=== PATIENT | male | born 1975 | race Caucasian/White ===

== ENCOUNTER 2017-04-12 21:29 | Emergency (ER) | payer BC ==
[~2017-04-12] VITALS: Ht 172.7 cm; Wt 80.5 kg
[2017-04-12] MEDS ORDERED: ZITHROMAX500 MG PO (23:45)
[2017-04-12] MEDS ORDERED: FLONASE16 G1 BOTH NARES (23:45)
[2017-04-13 00:08] VITALS: BP 130/84
== END 2017-04-13 00:09 | disposition home or self-care (01) ==
LOC: EME 21:29
DX: J02.9 Acute pharyngitis, unspecified (principal); J18.0 Bronchopneumonia, unspecified organism; J32.9 Chronic sinusitis, unspecified; Z88.0 Allergy status to penicillin; Z88.1 Allergy status to other antibiotic agents
CPT/HCPCS: 87502; 87651 90; 99281; 99284